=== PATIENT | female | born 2005 | race African-American/Black ===

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

== ENCOUNTER 2024-07-17 14:51 | Emergency (ER) | payer MEDICAID ==
[~2024-07-17 14:51] MED LIST: NAP500T PO; TAMS-35 PO
[2024-07-17] MEDS: ONDANSETRON ODT 4 MG TAB PO ONE (16:07)
[2024-07-17 16:15] LABS: Amphetamine Screen, Urine Neg (NEGATIVE); Barbiturate Scree,Urine Neg (NEGATIVE); Benzodiazephine Screen, Urine Neg (NEGATIVE); Cannabinoid Screen, Urine Pos (NEGATIVE); Cocaine Screen, Urine Neg (NEGATIVE); Opiate Scree,Urine Neg (NEGATIVE); Phencyclidine Screen, Urine Neg (NEGATIVE)
[2024-07-17] MEDS ORDERED: ZOFR4T PO (16:30)
[2024-07-17 16:34] LABS: Urine Bacteria FEW /hpf (None Seen); Urine Blood Negative /uL (Negative); Urine Clarity Turbid (Clear); Urine Color Light-Yellow (Yellow); Urine Mucus FEW (None Seen); Urine Protein, UAD Negative (Negative); Urine Specific Gravity 1.013 (1.001-1.035); Urine Urobilinogen Normal (Negative); Urine WBC 23 /hpf (0 - 5); Urine pH 6.5 (5.0-9.0)
[2024-07-17] MEDS ORDERED: NITR-87 PO (16:48)
[2024-07-17 17:01] VITALS: BP 116/68; PULSE 99; RESP 16; TEMP 98.5; O2SAT 100
== END 2024-07-17 17:01 | disposition home or self-care (01) ==
LOC: ER 14:51
DX: O23.40 Unspecified infection of urinary tract in pregnancy, unspecified trimester (principal); O21.9 Vomiting of pregnancy, unspecified; F15.90 Other stimulant use, unspecified, uncomplicated; Z3A.00 Weeks of gestation of pregnancy not specified; Z79.899 Other long term (current) drug therapy
CPT/HCPCS: 80307; 81001; 81025; 99283; Q0162